=== PATIENT | female | born 1985 | race Caucasian/White ===

== ENCOUNTER 2017-05-19 19:30 | Emergency (ER) | payer OTHER ==
[~2017-05-19] VITALS: Ht 160 cm; Wt 65.8 kg
[2017-05-19] MEDS ORDERED: IBUPROFEN 200200 M1 PO (19:43)
[2017-05-19] MEDS ORDERED: TYLENOL EXTRA500 MG PO (19:43)
[2017-05-19 20:09] LABS: ABSOLUTE BASOPHILS 0.1 thou/uL (0.0-0.2); ABSOLUTE EOSINOPHILS 0.1 thou/uL (0.0-0.7); ABSOLUTE LYMPHOCYTES 2.8 thou/uL (0.8-5.3); ABSOLUTE MONOCYTES 0.7 thou/uL (0.0-1.2); ABSOLUTE NEUTROPHILS 6.9 thou/uL (1.6-8.1); BASOPHILS 0.7 %; EOSINOPHILS 1.4 %; HEMATOCRIT 37.2 % (37.0-47.0); HEMOGLOBIN 12.5 gm/dL (12.0-15.0); LYMPHOCYTES 26.1 %; MCH 28.9 pg (26.0-34.0); MCHC 33.7 g/dL (28.0-37.0); MCV 85.7 fL (80.0-100.0); MONOCYTES 6.3 %; MPV 8.2 fl. (7.2-11.1); NUCLEATED RBCS 0 /100WBC; PLATELET COUNT* 252 thou/uL (150-400); POLYS 65.5 %; RBC 4.34 mil/uL (4.20-5.00); RDW-CV 13.7 % (10.5-14.5); WBC 10.6 thou/uL (4.0-11.0)
[2017-05-19 20:24] LABS: ANION GAP 6 mmol/L (7-16); BUN 8 mg/dL (7-18); CALCIUM 8.6 mg/dL (8.5-10.1); CHLORIDE 102 mmol/L (98-107); CO2 30 mmol/L (21-32); CREATININE 0.7 mg/dL (0.6-1.3); GLUCOSE 93 mg/dL (70-99); POTASSIUM 3.3 mmol/L (3.5-5.1); SODIUM 138 mmol/L (136-145)
[2017-05-19 20:33] LABS: ALBUMIN 3.7 g/dL (3.4-5.0); ALKALINE PHOSPHATASE 56 U/L (46-116); LIPASE 207 U/L (73-393); SGOT 14 U/L (15-37); SGPT 19 U/L (30-65); TOTAL BILIRUBIN 0.2 mg/dL (<0.1-1.0); TOTAL PROTEIN 7.2 g/dL (6.4-8.2); TROPONIN-I LEVEL <0.06 ng/mL (<0.06)
[2017-05-19 20:34] LABS: URINE BILIRUBIN NEGATIVE (Negative); URINE BLOOD 1+ (Negative); URINE CLARITY CLEAR; URINE COLOR YELLOW; URINE GLUCOSE-RANDOM NEGATIVE (Negative); URINE KETONES NEGATIVE (Negative); URINE LEUKOCYTES-REFLEX NEGATIVE (Negative); URINE NITRITE-REFLEX NEGATIVE (Negative); URINE PROTEIN NEGATIVE (Negative); URINE UROBILINOGEN 0.2 E.U./dl (0.2-1.0)
[2017-05-19 20:52] LABS: CASTS None Seen /LPF (None Seen); CRYSTALS None Seen /LPF (None Seen); MUCUS 4-6 Moderate strn/LPF (None Seen); SQUAMOUS 4-10 Moderate /LPF (0-3)
[2017-05-19 20:54] LABS: URINE RBC 3-10 Few /HPF (0-2); URINE WBC-REFLEX 0-5 Rare /HPF (0-5)
[2017-05-20] MEDS ORDERED: MACROBID 100 M100 M2 PO (00:41)
[2017-05-20] MEDS ORDERED: CARAFATE 1 GM TA1 G1 PO (00:41)
[2017-05-20] MEDS ORDERED: ZOFRAN ODT4 MG PO (00:41)
[2017-05-20] MEDS ORDERED: BENTYL 20 MG TA20 M1 PO (00:41)
[2017-05-20] MEDS ORDERED: OMEPRAZOLE20 MG PO (00:41)
[2017-05-20 00:48] VITALS: BP 124/66
--- NOTE | 2017-05-20 17:28 | EKG ---
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
== END 2017-05-20 00:49 | disposition home or self-care (01) ==
LOC: M.ERS 19:30
PROVIDERS: Physician Assistant
DX: N30.00 Acute cystitis without hematuria (principal); R10.13 Epigastric pain; Z88.0 Allergy status to penicillin; F10.99 Alcohol use, unspecified with unspecified alcohol-induced disorder